=== PATIENT | female | born 1975 | race African-American/Black ===

== ENCOUNTER → 2021-01-29 | Emergency (ER) | payer BC ==
[~2021-01-29] VITALS: Ht 165.1 cm; Wt 90.7 kg
[~2021-01-29] MED LIST: AMLODIPINE-OLM1 EAC2
== END | disposition home or self-care (01) ==
LOC: ER 00:16
DX: R21 Rash and other nonspecific skin eruption (principal); M79.89 Other specified soft tissue disorders